=== PATIENT | female | born 1990 | race Caucasian/White ===

== ENCOUNTER 2017-10-14 19:45 | Emergency (ER) | payer OTHER ==
[~2017-10-14] VITALS: Ht 162.5 cm; Wt 99.8 kg
[~2017-10-14 19:45] MED LIST: ATIVAN1 MG PO; BACTRIM DS 8001 TA1 PO; PYRIDIUM200 MG PO
[2017-10-14] MEDS ORDERED: IBUPROFEN600 MG PO (20:37)
[2017-10-14] MEDS ORDERED: SEPTDS PO (20:37)
== END 2017-10-14 20:44 | disposition home or self-care (01) ==
LOC: ED 19:45
DX: L08.9 Local infection of the skin and subcutaneous tissue, unspecified (principal)

== ENCOUNTER → 2020-07-19 | Outpatient (CLI) | payer BC ==
[~2020-07-19] MED LIST changes: +IBUPROFEN600 MG PO; +SEPTDS PO
[2020-07-20 04:06] LABS: FOLLICLE STIMULATING HORMONE 5.4 mIU/mL (.); LUTEINIZING HORMONE 6.7 mIU/mL (.); PROLACTIN 15.3 ng/mL (4.8-23.3)
[2020-07-21 14:12] LABS: TESTOSTERONE FREE, (DIRECT) 3.9 pg/mL (0.0-4.2)
== END | disposition home or self-care (01) ==
LOC: LAB 08:25
PROVIDERS: ATTEND Nurse Practitioner Women's Health
DX: R53.83 Other fatigue (principal); L68.0 Hirsutism; N93.9 Abnormal uterine and vaginal bleeding, unspecified

== ENCOUNTER 2023-12-08 10:39 | Emergency (ER) | payer SELFPAY ==
[~2023-12-08] VITALS: Ht 162.5 cm; Wt 74.4 kg
[2023-12-08] MEDS ORDERED: ZOLOFT25 MG PO (11:18)
[2023-12-08] MEDS ORDERED: ROPINIROLE HY0.25 MG PO (11:19)
[2023-12-08] MEDS ORDERED: BUSPAR5 MG PO (11:19)
[2023-12-08] MEDS ORDERED: BIOTIN10 MG PO (11:20)
[2023-12-08] MEDS ORDERED: BENZAMYCIN GE46.6 GM T (11:20)
[2023-12-08 12:21] LABS: HEMATOCRIT 42.6 % (37.0-47.0); MEAN PLATELET VOLUME 9.4 fl (9.6-12.3); PLATELET COUNT AUTOMATED 290 10*3/uL (130-400); RED BLOOD COUNT 4.68 10*6/uL (4.10-5.10); WHITE BLOOD COUNT 13.4 10*3/uL (4.8-10.8)
[2023-12-08 12:24] LABS: MANUAL DIFF REFLEX YES
[2023-12-08 12:36] LABS: TOTAL CELLS COUNTED 100 #CELLS
[2023-12-08 12:37] LABS: BURR CELLS FEW; PLATELET SUFFICIENCY NORMAL (NORMAL); POLYCHROMASIA SLIGHT; SCHISTOCYTES FEW; TARGET CELLS FEW
[2023-12-08] MEDS ORDERED: Lidocaine Hydrochloride 2% 10 ML AMP SC SCH (13:05)
[2023-12-08] MEDS ORDERED: CEPHALEXIN500 M1 PO (13:53)
[2023-12-08] MEDS ORDERED: VIBRAMYCIN100 MG PO (13:53)
== END 2023-12-08 14:06 | disposition home or self-care (01) ==
LOC: ED 10:39
PROVIDERS: Emergency Medicine
DX: L72.8 Other follicular cysts of the skin and subcutaneous tissue (principal)

== ENCOUNTER 2024-03-23 15:54 | Emergency (ER) | payer OTHER ==
[~2024-03-23] VITALS: Ht 162.5 cm; Wt 74.8 kg
[~2024-03-23 15:54] MED LIST changes: +BENZAMYCIN GE46.6 GM T; +BIOTIN10 MG PO; +BUSPAR5 MG PO; +CEPHALEXIN500 M1 PO; +ROPINIROLE HY0.25 MG PO; +VIBRAMYCIN100 MG PO; +ZOLOFT25 MG PO
[2024-03-23] MEDS ORDERED: VIBRAMYCIN100 MG PO (17:02)
[2024-03-23] MEDS ORDERED: CEPHALEXIN500 M1 PO (17:02)
== END 2024-03-23 17:17 | disposition home or self-care (01) ==
LOC: ED 15:54
DX: L72.8 Other follicular cysts of the skin and subcutaneous tissue (principal)